=== PATIENT | male | born 1990 | race African-American/Black ===

== ENCOUNTER 2020-04-24 12:31 | Emergency (ER) | payer SELFPAY ==
[~2020-04-24] VITALS: Ht 167.6 cm; Wt 72.6 kg
[2020-04-24 13:11] LABS: APPEARANCE,URINE CLEAR; BILIRUBIN, URINE NEGATIVE (NEGATIVE); GLUCOSE, URINE (UA) NEGATIVE (NEGATIVE); KETONES,URINE 3+ (NEGATIVE); LEUKOCYTE ESTERASE ,URINE 1+ (NEGATIVE); NITRITE,URINE NEGATIVE (NEGATIVE); PH,URINE 5 (4.5-8.0); PROTEIN,URINE 2+ (NEGATIVE); UROBILINOGEN,URINE 1 MG/DL (0.0-1.0)
[2020-04-24 13:12] LABS: BASOPHILS % (AUTO) 1.1 % (0.0-2.0); HEMATOCRIT 42.2 % (42.0-52.0); HEMOGLOBIN 15.4 G/DL (14.2-18.0); LYMPHOCYTES % (AUTO) 11.3 % (20.0-45.0); MEAN CORPUSCULAR VOLUME 90 FL (80-99); MONOCYTES % (AUTO) 6.3 % (1.0-10.0); NEUTROPHILS % (AUTO) 81.2 % (45.0-75.0); PLATELET COUNT 268 K/UL (150-450); RED CELL DISTRIBUTION WIDTH 11.3 % (11.6-14.8); WHITE BLOOD COUNT 13.6 K/UL (4.8-10.8)
[2020-04-24 13:18] LABS: COLOR,URINE YELLOW
[2020-04-24] MEDS ORDERED: cefTRIAXone 1 GM in NS 55 ML IVPB ONE (13:30)
--- NOTE | 2020-04-24 13:30 | NUR ---
ED Nurse Note:pt. was BIBA from the street with dehydration weakness and fever, pt. is A/Ox4 ,skin is intact, blood cultures and covid swab sent to labs, pt. received iv fluids and tylenol for fever
[2020-04-24 13:33] LABS: ANION GAP 8 mmol/L (5-15); BLOOD UREA NITROGEN 10 mg/dL (7-18); CALCIUM 8.7 MG/DL (8.5-10.1); CARBON DIOXIDE 27 MMOL/L (21-32); CHLORIDE 98 MMOL/L (98-107); CREATININE 1.2 MG/DL (0.55-1.30); POTASSIUM 3.3 MMOL/L (3.5-5.1); SODIUM 133 MMOL/L (136-145)
[2020-04-24 13:37] LABS: ALANINE AMINOTRANSFERASE 19 U/L (12-78); ALBUMIN 3.7 G/DL (3.4-5.0); ALBUMIN/GLOBULIN RATIO 1.1 (1.0-2.7); ALKALINE PHOSPHATASE 65 U/L (46-116); ASPARTATE AMINO TRANSFERASE 14 U/L (15-37); BILIRUBIN,TOTAL 0.7 MG/DL (0.2-1.0)
[2020-04-24 13:40] VITALS: BP 116/71
--- NOTE | 2020-04-24 13:45 | NUR ---
ED Nurse Note: pt received from [facility]. pt is resting in bed with IV fluids and IV abx infusing per orders (see eMAR). no acute distress is ntoed at this time. pt's vitals remain stable on shelter monitor, pt is on RA satting at 100%. will cont to monitor pt
--- NOTE | 2020-04-24 13:47 | NUR ---
ED Nurse Note: pt transported to CT via [facility]
--- NOTE | 2020-04-24 13:57 | NUR ---
ED Nurse Note: pt returned from CT
--- NOTE | 2020-04-24 14:02 | Emergency Room Report ---
History of Present Illness General Chief Complaint: Generalized Weakness Source: Patient Present Illness HPI 29-year-old male with history of bipolar disorder and schizophrenia currently not to be medication coming from the street by paramedics due to 1 week of shortness of breath, cough, fever, and diarrhea. Reports that he has not taken his psychiatric medication over a year. Denies any SI and HI. Denies chest pain, abdominal pain, nausea vomiting. Reports that he drinks alcohol and smokes tobacco however denies all other drug use. Has not taken medication for symptom relief. Does not recall if he came in contact with someone who was positive for Covid. Patient speaking full sentences, oxygenation within normal limits, slightly tachycardic upon arrival however resolved with fluid administration, and has temperature of 102 F upon arrival. Otherwise stable. Also complains of dizziness and generalized weakness. Denies any fall or injury Allergies: Coded Allergies: No Known Allergies (Unverified , 04/24/20) COVID-19 Screening Contact w/high risk pt: No Experienced COVID-19 symptoms?: Yes COVID-19 Testing performed [employer]: No Patient History Past Medical History: see triage record Past Surgical History: none Pertinent Family History: none Social History: Reports: smoking Reviewed Nursing Documentation: PMH: Agreed; PSxH: Agreed Nursing Documentation-PMH Past Medical History: No Stated History Review of Systems All Other Systems: negative except mentioned in HPI Physical Exam Vital Signs Date Time Temp Pulse Resp B/P (MAP) Pulse Ox O2 Delivery O2 Flow Rate FiO2 04/24/20 12:26 102.7 103 18 116/71 (86) 98 Room Air Sp02 EP Interpretation: reviewed, abnormal - Elevated temperature General Appearance: no apparent distress, alert, GCS 15, non-toxic Eyes: bilateral eye normal inspection, bilateral eye PERRL ENT: hearing grossly normal, normal pharynx, no angioedema, normal voice Neck: full range of motion, supple/symm/no masses Respiratory: chest non-tender, lungs clear, normal breath sounds, no rhonchi, no respiratory distress, no retraction, no wheezing, speaking full sentences Cardiovascular #1: regular rate, rhythm, no edema Cardiovascular #2: 2+ carotid (R), 2+ carotid (L), 2+ radial (R), 2+ radial (L), 2+ dorsalis pedis (R), 2+ dorsalis pedis (L) Gastrointestinal: non tender Rectal: deferred Genitourinary: no CVA tenderness Musculoskeletal: back normal Neurologic: alert, motor strength/tone normal, oriented x3, sensory intact, responsive, speech normal Psychiatric: judgement/insight normal, memory normal, mood/affect normal, no suicidal/homicidal ideation Skin: no rash Lymphatic: no adenopathy Medical Decision Making PA Attestation All my diagnosis and treatment plans were reviewed ad discussed with my supervising physician Dr. Payne Diagnostic Impression: Primary Impression: Pneumonia ER Course 29-year-old male with history of bipolar disorder and schizophrenia currently not to be medication coming from the street by paramedics due to 1 week of shortness of breath, cough, fever, and diarrhea. Reports that he has not taken his psychiatric medication over a year. Denies any SI and HI. Denies chest pain, abdominal pain, nausea vomiting. Reports that he drinks alcohol and smokes tobacco however denies all other drug use. Has not taken medication for symptom relief. Does not recall if he came in contact with someone who was positive for Covid. Patient speaking full sentences, oxygenation within normal limits, slightly tachycardic upon arrival however resolved with fluid administration, and has temperature of 102 F upon arrival. Otherwise stable. Also complains of dizziness and generalized weakness. Denies any fall or injury Ddx considered but are not limited to: bronchitis, PNA, URI viral, bacterial bronchitis, coronavirus Vital signs: are WNL, pt. is febrile H&PE are most consistent with: Pneumonia ORDERS: Sepsis order set, azithromycin, Phenergan, prednisone, albuterol ED INTERVENTIONS: NS bolus, Rocephin DISCHARGE: At this time pt. is stable for d/c to home. Will provide printed patient care instructions, and any necessary prescriptions. Care plan and follow up instructions have been discussed with the patient prior to discharge. Take medication as directed, follow primary care provider, if worsening symptoms return to the emergency room EKG Diagnostic Results Rate: normal Rhythm: NSR ST Segments: no acute changes Other Impression No acute ST changes ASA given to the pt in ED: No Chest X-Ray Diagnostic Results Chest X-Ray Diagnostic Results : Chest X-Ray Ordered: Yes # of Views/Limited/Complete: 1 View Indication: Other - Cough EP Interpretation: Yes KURT Xray: Interpretation reviewed, by supervising MD, and agrees with findings. Interpretation: no pneumothorax, other - Infiltrates noted right lower lobe Impression: Other - Pneumonia right lower lobe Electronically Signed by: Jenny Sanches PA-C CT/MRI/US Diagnostic Results CT/MRI/US Diagnostic Results : Imaging Test Ordered: Head CT no contrast Impression EXAM: CT Head Without Intravenous Contrast CLINICAL HISTORY: DIZZY TECHNIQUE: Axial computed tomography images of the head/brain without intravenous contrast. CTDI is 53.40 mGy and DLP is 972.30 mGy-cm. One or more of the following dose reduction techniques were used: automated exposure control, adjustment of the mA and/or kV according to patient size, use of iterative reconstruction technique. COMPARISON: None FINDINGS: Brain: No acute infarct or hemorrhage. No extra-axial fluid collection. No mass effect or midline shift. Ventricles and sulci: Normal. No ventriculomegaly or intraventricular hemorrhage. Bones: Normal. No bony lesion or acute fracture. Subcutaneous tissues: Normal. Sinuses: Mild mucosal thickening in the ethmoid air cells. Mastoid air cells: Normal. Orbits: Grossly unremarkable. IMPRESSION: No acute intracranial abnormality. Last Vital Signs Date Time Temp Pulse Resp B/P (MAP) Pulse Ox O2 Delivery O2 Flow Rate FiO2 04/24/20 13:40 86 18 Room Air 04/24/20 13:40 102.0 116/71 99 Disposition: HOME, SELF-CARE Condition: Stable Scripts Promethazine Hcl (PROMETHAZINE HCL*) 6.25 Mg/5 Ml Syrup 5 ML ORAL Q8H, #120 ML 0 Refills Prov: Jenny Dominguez 04/24/20 Albuterol Sulfate (VENTOLIN HFA) 18 Gm Hfa.aer.ad 2 PUFFS INH EVERY 6 HOURS, #18 GM 0 Refills Prov: Jenny Dominguez 04/24/20 Prednisone* (PREDNISONE*) 20 Mg Tablet 40 MG ORAL DAILY for 5 Days, #10 TAB Prov: Jenny Dominguez 04/24/20 Azithromycin* (ZITHROMAX*) 250 Mg Tablet 250 MG ORAL DAILY, #6 TAB 0 Refills Take two tables once daily for 1 day, then one tablet once daily for 4 days. Prov: Jenny Dominguez 04/24/20 Referrals: NOT CHOSEN IPA/,REFERRING (PCP) Patient Instructions: Community-Acquired Pneumonia, Adult, [id number] Additional Instructions: Take medication as directed, follow with primary care provider, if worsening symptoms return to the emergency room Jenny Dominguez Apr 24, 2020 14:02
[2020-04-24] MEDS ORDERED: ZITHROMAX250 MG ORAL (14:07)
[2020-04-24] MEDS ORDERED: PROMETHAZI6.25 MG/1 ORAL (14:07)
[2020-04-24] MEDS ORDERED: VENTOLIN HFA18 GM INH (14:07)
[2020-04-24] MEDS ORDERED: PREDNISONE20 MG ORAL (14:07)
--- NOTE | 2020-04-24 14:16 | Diagnostic Imaging Report ---
EXAM: XR Chest, 1 View CLINICAL HISTORY: PAIN TECHNIQUE: Frontal view of the chest. COMPARISON: None FINDINGS: Hardware: None. Lungs/pleura: Streaky markings in the lower lungs. No focal consolidation. No pleural effusion or pneumothorax. Heart/mediastinum: Normal. No cardiomegaly. Soft tissues: Unremarkable. Bones: No acute fracture. Upper abdomen: Normal. IMPRESSION: Streaky markings in the lower lungs may represent normal vascular markings, but infectious/inflammatory process cannot be entirely excluded. No focal consolidation.
[2020-04-24 14:40] VITALS: BP 116/71
--- NOTE | 2020-04-24 14:40 | NUR ---
Homeless Discharge: Patient is being discharged from medical care. Awake, alert and oriented x3. After care instructions, including referral to community resources were given. Patient verbalized understanding of After care instructions; pt was provided with paper copy of prescriptions, resources for placement and clinic referrals. Patient signed all necessary d/c paper work. All medical devices such as IV and ID band were removed. Patient ambulated out with all personal belongings with steady gait, provided with a meal and juice.
--- NOTE | 2020-04-24 14:46 | Diagnostic Imaging Report ---
EXAM: CT Head Without Intravenous Contrast CLINICAL HISTORY: DIZZY TECHNIQUE: Axial computed tomography images of the head/brain without intravenous contrast. CTDI is 53.40 mGy and DLP is 972.30 mGy-cm. One or more of the following dose reduction techniques were used: automated exposure control, adjustment of the mA and/or kV according to patient size, use of iterative reconstruction technique. COMPARISON: None FINDINGS: Brain: No acute infarct or hemorrhage. No extra-axial fluid collection. No mass effect or midline shift. Ventricles and sulci: Normal. No ventriculomegaly or intraventricular hemorrhage. Bones: Normal. No bony lesion or acute fracture. Subcutaneous tissues: Normal. Sinuses: Mild mucosal thickening in the ethmoid air cells. Mastoid air cells: Normal. Orbits: Grossly unremarkable. IMPRESSION: No acute intracranial abnormality.
--- NOTE | 2020-04-25 19:32 | Cardiology Report ---
APPROVED REPORT EKG Measurement Heart [id number] <Conclusion> Normal sinus rhythm Cannot rule out Anterior infarct, age undetermined Abnormal ECG
== END 2020-04-24 14:40 | disposition home or self-care (01) ==
LOC: EDBD 12:31 → EMR 12:45
DX: J18.9 Pneumonia, unspecified organism (principal); F31.9 Bipolar disorder, unspecified; F20.9 Schizophrenia, unspecified; F17.200 Nicotine dependence, unspecified, uncomplicated; R00.0 Tachycardia, unspecified
CPT/HCPCS: 36415; 70450; 71045; 80053; 80307; 81003; 83605; 84484; 85025; 87040; 93005; 96361; 96365; 99284; J0696; J7030; U0002